=== PATIENT | male | born 1965 | race Caucasian/White ===

== ENCOUNTER → 2016-11-15 | Day surgery (SDC) | payer OTHER ==
[~2016-11-15] MED LIST: ACETAMINOPHEN/HYDROcodone 325 MG/5 MG TAB ONE; APIX5TAB PO; BUPIVACAINE/EPINEPHRINE 0.25% PF 30 ML VIAL ONE; FLUT50SP EACH NARE; KETOROLAC TROMETHAMINE 30 MG/ML (IVP) VIAL IV PUSH ONE; LACTATED RINGER'S 1000 ML INJ 1,000 ML ONE; LATA0.002 EACH EYE; MEPERIDINE HCL 25 MG/ML VIAL ONE; MIDAZOLAM HCL 2 MG/2 ML VIAL ONE; MORPHINE SULFATE 4 MG/ML INJ ONE; ONDANSETRON HCL 4 MG/2 ML VIAL IV PUSH ONE; PROPOFOL 200 MG/20 ML AMP IV ONE; TIMO0.5S5 EACH EYE; ceFAZolin 2 GM PREMIX 50 ML ONE
--- NOTE | 2016-11-15 11:00 | TN ---
cc: GAMAL BISHOP M.D. DATE OF SURGERY: 11/15/2016 PREOPERATIVE DIAGNOSIS Left inguinal hernia, umbilical hernia. POSTOPERATIVE DIAGNOSIS Left indirect inguinal hernia, left spermatic cord lipoma, umbilical hernia. PROCEDURE Laparoscopic repair left inguinal hernia with mesh, open repair umbilical hernia. SURGEON Dr. Gamal Bishop. ANESTHESIA General. INDICATIONS This is a pleasant 51-year-old gentleman who has noted a left groin bulge over the last month. It can be a little bit uncomfortable especially when attempting to reduce it. He is interested in laparoscopic hernia repair, he had incidentally discovered small umbilical hernia. INTRAOPERATIVE FINDINGS Left side indirect inguinal hernia defect through which spermatic cord lipoma and indirect inguinal hernia sac protruded. Small umbilical hernia defect primarily repaired with suture. ESTIMATED BLOOD LOSS Minimal. DESCRIPTION OF PROCEDURE IN DETAIL The patient was identified as Hayden Strange, taken to the operating room and placed in the supine position. Sequential compression devices were placed on bilateral lower extremities. Following induction of adequate general anesthesia the patient's abdomen was prepped and draped in usual sterile fashion with Betadine. A time-out procedure was performed. Following completion of time-out procedure to everyone's satisfaction within the room a proposed infraumbilical transverse incision was made with a marking pen, infiltrated with local anesthetic. Local anesthetic was placed around the umbilicus as well. Incision was carried out with scalpel and dissection continued posteriorly lifting umbilical skin off herniated preperitoneal fatty tissue which was reduced through a small defect at the umbilicus less than 1 cm in diameter. The anterior rectus fascia was then identified on the left side and incised vertically at its medial border and a preperitoneal plane was developed with surgeon's finger directed towards the pubic symphysis and the preperitoneal dissecting balloon was placed in preperitoneal space and with the patient in slight Trendelenburg position under direct laparoscopic view inflated to a total of approximately 40 pumps. This allowed for identification of Leodan's ligament and the inferior epigastric vessels. The balloon was desufflated, removed and the structural balloon trocar placed in preperitoneal space, its balloon inflated with C02 insufflation until a level of 11 mmHg ensued. Two infraumbilical midline 5 mm trocars then placed in the preperitoneal space under direct laparoscopic view after incision of skin with a scalpel. Attention was turned first to identification of anatomic structures, Leodan's ligament and the inferior epigastric vessels were easily identified. Blunt dissection lateral and posterior to the spermatic cord on the left side was then performed. Posterior laterally a spermatic cord lipoma was easily identified and reduced from the inguinal canal into the preperitoneal space. The anteromedial surface was examined of the spermatic cord and obvious indirect inguinal hernia sac was reduced from the inguinal canal down to the base of the spermatic cord with blunt graspers. Blunt dissection posterior to the spermatic cord was performed and a 4 x 6 inch piece of atrium ProLite mesh was cut with anterolateral slit placed around the spermatic cord and tacked in position wit the pro-tack device. Tacks were placed to approximate the anterolateral slit and along the anterior border of Leodan's ligament. The 2 x 6 inch piece of remaining polypropylene mesh was then placed across the anterolateral slit and held in position with single tack superior laterally, a tack on Leodan's ligament anterior border and a tack medial to the inferior epigastric vessels. Photographs were taken of the completed repair. Remaining local anesthetic was placed in preperitoneal space. Trocars were removed under direct visualization and there was no evidence of bleeding from trocar sites. The preperitoneal space was desufflated actively through the infraumbilical port while holding the inferior lateral mesh against the abdominal wall allowing the peritoneum and the preperitoneal fatty tissue to lay on top of the mesh. The anterior rectus fascial incision was closed with running 2-0 Vicryl suture. The umbilical hernia defect was approximated with two interrupted 0-Prolene sutures. 2-0 Vicryl was used to reestablish the umbilicus. Skin incisions were approximated with 4-0 Monocryl subcuticular sutures. Dressings were applied, Mastisol, half-inch brown Steri-Strips. Gauze and Tegaderm were placed over the umbilicus. The patient tolerated the procedure without apparent complication. Sponge, needle and instrument counts were correct at the end of the case. MD ELENA Kinney/BARTOLO /10:28 AM /10:47 AM
== END | disposition home or self-care (01) ==
LOC: ESDC 07:42
PROVIDERS: ATTEND Surgery Trauma Surgery
DX: K40.90 Unilateral inguinal hernia, without obstruction or gangrene, not specified as recurrent (principal); K42.9 Umbilical hernia without obstruction or gangrene; D17.6 Benign lipomatous neoplasm of spermatic cord
CPT/HCPCS: 00750; 00840; 49585; 49650; C1727; C1781; J0690; J1885; J2175; J2250; J2270; J2405; J3010; J7120

== ENCOUNTER 2017-09-10 21:57 | Emergency (ER) | payer OTHER ==
[~2017-09-10 21:57] MED LIST changes: -ACETAMINOPHEN/HYDROcodone 325 MG/5 MG TAB ONE; -BUPIVACAINE/EPINEPHRINE 0.25% PF 30 ML VIAL ONE; -KETOROLAC TROMETHAMINE 30 MG/ML (IVP) VIAL IV PUSH ONE; -LACTATED RINGER'S 1000 ML INJ 1,000 ML ONE; -MEPERIDINE HCL 25 MG/ML VIAL ONE; -MIDAZOLAM HCL 2 MG/2 ML VIAL ONE; -MORPHINE SULFATE 4 MG/ML INJ ONE; -ONDANSETRON HCL 4 MG/2 ML VIAL IV PUSH ONE; -PROPOFOL 200 MG/20 ML AMP IV ONE; -ceFAZolin 2 GM PREMIX 50 ML ONE
[2017-09-10 22:04] VITALS: BP 125/77; PULSE 84; RESP 20; TEMP 97.9; O2SAT 95
--- NOTE | 2017-09-11 00:31 | PD ---
HPI Chief Complaint: Laceration/Skin Injury Time Seen by Provider: 00:24 Travel History International Travel<30 days: No Contact w/Intl Traveler<30days: No Traveled to known affect area: No History of Present Illness HPI The patient is a 52-year-old male who is on Eliquis who stubbed his left fifth toe on a stake in the ground at 8 PM tonight. The bleeding is under control but he has a small skin flap and came in for this. His last tetanus shot was 2 years ago. PFSH Past Medical History Hx Anticoagulant Therapy: Yes (PE) High Cholesterol: Yes Diminished Hearing: No Deep Vein Thrombosis: Yes (left leg -2009) Glaucoma: Yes Respiratory: Yes ( PE in Nov 2016) Immunizations Current: Yes Tetanus Vaccination: < 5 Years Past Surgical History Appendectomy: Yes (1985) Social History Alcohol Use: Yes (occasionally;) Tobacco Use: No Substance Use: No Allergies-Medications (Allergen,Severity, Reaction): Coded Allergies: No Known Allergies (Unverified , 08/01/17) Reported Meds & Prescriptions Reported Meds & Active Scripts Active Eliquis (Apixaban) 5 Mg Tab 5 Mg PO BID Reported Fluticasone Nasal [place] 50 Mcg/Act Naspr 100 Mcg EACH NARE BID 50 mcg/spray Latanoprost Opth Drops (Latanoprost) 0.005% Drops 1 Drop EACH EYE HS Refrigerate until opened. Timoptic Opth Drops (Timolol Opth Drops) 0.5 % Soln 1 Drop EACH EYE BID Review of Systems Except as stated in HPI: all other systems reviewed are Neg Physical Exam Narrative GENERAL: Well-nourished, well-developed patient in minimal apparent distress with his left fifth toe laceration SKIN: Focused skin assessment warm/dry. There is a small 1 cm skin flap that is dried and very superficial. This will be debrided. No active bleeding is present from the wound at this time. HEAD: Normocephalic. EYES: No scleral icterus. No injection or drainage. NECK: Supple, trachea midline. No JVD or lymphadenopathy. CARDIOVASCULAR: Regular rate and rhythm without murmurs, gallops, or rubs. RESPIRATORY: Breath sounds equal bilaterally. No accessory muscle use. GASTROINTESTINAL: Abdomen soft, non-tender, nondistended. MUSCULOSKELETAL: No cyanosis, or edema. BACK: Nontender without obvious deformity. No CVA tenderness. Data Data Last Documented VS Vital Signs Date Time Temp Pulse Resp B/P (MAP) Pulse Ox O2 Delivery O2 Flow Rate FiO2 09/10/17 22:04 97.9 84 20 125/77 (93) 95 MDM Medical Decision Making Medical Screen Exam Complete: Yes Emergency Medical Condition: Yes Medical Record Reviewed: Yes Differential Diagnosis Laceration needing suturing, laceration not needing suturing Narrative Course The patient has a laceration that is not needing suturing. This was soaked in Betadine, debrided and cleaned and bandaged. Procedures Procedure Narrative The skin flap was removed and the wound debrided and the patient will be bandaged. The patient did not need any anesthetic for this seizure. The wound was simply trimmed up with scissors. Diagnosis Primary Impression: Laceration of toe of left foot Additional Instructions: As we discussed, soak the foot twice daily and then bandage the toe using antibiotic ointment next of the wound. If it starts to bleed again, simply use pressure and it we'll stop. Oftentimes a pressure bandage can be put on which will stop the bleeding. Med/Other Pt SpecificInfo: No Change to Meds Disposition: 01 DISCHARGE HOME Condition: Stable Can [place] MD Sep 11, 2017 00:31
[2017-09-11 00:36] VITALS: BP 130/77; PULSE 88; RESP 16; TEMP 97.8; O2SAT 97
== END 2017-09-11 00:41 | disposition home or self-care (01) ==
LOC: PHED 21:57
DX: S91.115A Laceration without foreign body of left lesser toe(s) without damage to nail, initial encounter (principal); W22.8XXA Striking against or struck by other objects, initial encounter
CPT/HCPCS: 99282